=== PATIENT | male | born 1990 | race Caucasian/White ===

== ENCOUNTER → 2022-04-09 | Outpatient (CLI) | payer OTHER ==
[~2022-04-09] MED LIST: ALBU8HFA2 INH; ALBU90OI INH; ATIVAN; CEPH250A PO; CETI10 PO; CODACE30 PO; DOXY100 PO; HYDPAM50 PO; NAPR500 PO; PROM25 PO
== END ==
LOC: PLD 08:02 → LAB SHORT 08:02
DX: L60.2 Onychogryphosis (principal); B35.1 Tinea unguium
CPT/HCPCS: 88305; 88312